=== PATIENT | female | born 1990 | race Caucasian/White ===

== ENCOUNTER 2022-07-07 16:37 | Emergency (ER) | payer SELFPAY ==
[~2022-07-07] VITALS: Ht 160 cm; Wt 104.3 kg
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
--- NOTE | 2022-07-07 16:51 | NUR ---
SEVEN [facility]ONA AT BEDSIDE FOR EVAL
[2022-07-07] MEDS ORDERED: DIAZEPAM 5 MG TABLET ONE (16:59)
[2022-07-07] MEDS ORDERED: KETOROLAC TROMETHAMINE INJ 30 MG/ML VIAL ONE (16:59)
[2022-07-07] MEDS ORDERED: KETOROLAC TROMETHAMINE INJ 60 MG/2 ML VIAL IM ONE (17:00)
[2022-07-07] MEDS ORDERED: DIAZEPAM 5 MG TABLET PO ONE (17:00)
[2022-07-07] MEDS ORDERED: ACETAMINOPHEN 325 MG TABLET PO ONE (18:30)
[2022-07-07] MEDS ORDERED: ACETAMINOPHEN ES 500 MG TABLET ONE (18:33)
--- NOTE | 2022-07-07 18:44 | NUR ---
Patient discharged to home in stable condition. Written and verbal after care instructions given. Patient verbalizes understanding of instruction.
[2022-07-07 18:46] VITALS: BP 144/99
== END 2022-07-07 18:46 | disposition home or self-care (01) ==
LOC: ER 16:45
DX: F41.0 Panic disorder [episodic paroxysmal anxiety] (principal); F43.9 Reaction to severe stress, unspecified; M54.2 Cervicalgia; Z86.73 Personal history of transient ischemic attack (TIA), and cerebral infarction without residual deficits; G43.909 Migraine, unspecified, not intractable, without status migrainosus; F12.90 Cannabis use, unspecified, uncomplicated; V49.49XA Driver injured in collision with other motor vehicles in traffic accident, initial encounter; Y93.89 Activity, other specified; Y92.413 State road as the place of occurrence of the external cause; Y99.8 Other external cause status
CPT/HCPCS: 99283; 96372; J1885